=== PATIENT | female | born 1975 | race Native Hawaiian/Other Pacific Islander ===

== ENCOUNTER 2018-09-04 20:45 | Emergency (ER) | payer OTHER ==
[~2018-09-04] VITALS: Ht 157.5 cm; Wt 46.7 kg
[2018-09-04 21:04] VITALS: TEMP 99.5
[2018-09-04 21:52] LABS: PLATELET COUNT 307 K/uL (152-353)
[2018-09-04 22:06] LABS: POTASSIUM 3.3 mmol/L (3.6-5.2)
[2018-09-05 00:12] VITALS: BP 114/80
== END 2018-09-05 00:12 | disposition home or self-care (01) ==
LOC: ED 20:45
PROVIDERS: Emergency Medicine
DX: E87.1 Hypo-osmolality and hyponatremia (principal); E86.0 Dehydration
CPT/HCPCS: 80053; 81000; 85027; 96360; 96374; 96376; 99284; J1885

== ENCOUNTER 2018-09-06 20:52 | Emergency (ER) | payer OTHER ==
[~2018-09-06] VITALS: Ht 157.5 cm; Wt 48.1 kg
[2018-09-06 22:35] VITALS: BP 100/63; TEMP 98.8
== END 2018-09-06 22:36 | disposition home or self-care (01) ==
LOC: ED 20:52
DX: N30.90 Cystitis, unspecified without hematuria (principal)
CPT/HCPCS: 81000; 99283

== ENCOUNTER 2018-09-21 16:35 | Emergency (ER) | payer OTHER ==
[~2018-09-21] VITALS: Ht 157.5 cm; Wt 48.1 kg
[2018-09-21 17:12] LABS: PLATELET COUNT 357 K/uL (152-353)
[2018-09-21 17:20] LABS: POTASSIUM 3.7 mmol/L (3.6-5.2)
[2018-09-21 20:40] VITALS: BP 112/78; TEMP 98.9
== END 2018-09-21 20:40 | disposition home or self-care (01) ==
LOC: ED 16:35
PROVIDERS: Emergency Medicine
PROC: 0T9B70Z Drainage of Bladder with Drainage Device, Via Natural or Artificial Opening (ICD-10-PCS; principal; 2018-09-21)
DX: N83.9 Noninflammatory disorder of ovary, fallopian tube and broad ligament, unspecified (principal)
CPT/HCPCS: 36415; 51702; 80053; 81000; 85027; 99284; Q9963

== ENCOUNTER 2019-03-26 14:26 | Emergency (ER) | payer OTHER ==
[~2019-03-26] VITALS: Ht 157.5 cm; Wt 48.1 kg
[2019-03-26 14:39] VITALS: TEMP 99.3
[2019-03-26 16:15] LABS: PLATELET COUNT 488 K/uL (152-353)
[2019-03-26 16:22] LABS: POTASSIUM 3.6 mmol/L (3.6-5.2)
[2019-03-26 18:04] VITALS: BP 126/72
== END 2019-03-26 18:04 | disposition home or self-care (01) ==
LOC: ED 14:26
PROVIDERS: Emergency Medicine
DX: M54.5 Low back pain (principal); M46.46 Discitis, unspecified, lumbar region
CPT/HCPCS: 80053; 85027; 85651; 96372; 99283; J0696; J1885

== ENCOUNTER 2021-08-29 16:20 | Emergency (ER) | payer OTHER ==
[~2021-08-29] VITALS: Ht 157.5 cm; Wt 48.1 kg
[2021-08-29 16:30] VITALS: TEMP 97.8
[2021-08-29 18:00] VITALS: BP 128/90
== END 2021-08-29 18:20 | disposition home or self-care (01) ==
LOC: ED 16:20
DX: J44.1 Chronic obstructive pulmonary disease with (acute) exacerbation (principal); G25.81 Restless legs syndrome; Z20.822 Contact with and (suspected) exposure to COVID-19; F17.210 Nicotine dependence, cigarettes, uncomplicated
CPT/HCPCS: 87502; 87635; 87651; 94664; 99283; U0003

== ENCOUNTER 2021-10-02 23:49 | Emergency (ER) | payer OTHER ==
[~2021-10-02] VITALS: Ht 157.5 cm; Wt 52.6 kg
[2021-10-03 00:48] LABS: POTASSIUM 3.6 mmol/L (3.6-5.2); SODIUM 138 mmol/L (136-145)
[2021-10-03 00:52] LABS: PLATELET COUNT 273 K/uL (152-353)
[2021-10-03 01:01] LABS: PARTIAL THROMBOPLASTIN TIME 25.9 SECONDS (24.5-33.6)
[2021-10-03 01:33] VITALS: BP 136/82; TEMP 98
== END 2021-10-03 01:33 | disposition home or self-care (01) ==
LOC: ED 23:49
PROVIDERS: Hospitalist
DX: G25.81 Restless legs syndrome (principal); J44.9 Chronic obstructive pulmonary disease, unspecified
CPT/HCPCS: 36415; 80053; 80320; 82550; 83880; 84484; 85027; 85610; 85730; 93005; 96374; 96375; 99284; J1200; J2930